=== PATIENT | female | born 1995 | race Caucasian/White ===

== ENCOUNTER → 2019-06-21 | Emergency (ER) | payer OTHER ==
[2019-06-21] MEDS: ONDANSETRON (ODT) 4 MG TAB ODT (13:06)
== END | disposition home or self-care (01) ==
LOC: FTE 11:25
DX: J06.9 Acute upper respiratory infection, unspecified (principal); H66.003 Acute suppurative otitis media without spontaneous rupture of ear drum, bilateral
CPT/HCPCS: 81025; 99283